=== PATIENT | female | born 1995 | race Caucasian/White ===

== ENCOUNTER 2024-07-07 20:56 | Emergency (ER) | payer OTHER ==
[~2024-07-07] VITALS: Ht 154.9 cm; Wt 103.0 kg
[2024-07-07 21:13] VITALS: BP 127/58; PULSE 89; RESP 18; TEMP 98.6; O2SAT 98
[2024-07-07 22:59] LABS: APPEARANCE,URINE CLEAR (CLEAR); BILIRUBIN,URINE NEGATIVE (NEGATIVE); BLOOD, URINE TRACE-I (NEGATIVE); COLOR,URINE YELLOW (YELLOW); LEUKOCYTE ESTERASE ,URINE TRACE (NEGATIVE); NITRITE, URINE NEGATIVE (NEGATIVE); PH,URINE 7.5 (5.0-9.0); PROTEIN,URINE NEGATIVE (NEGATIVE); UGLUCOSE NEGATIVE (NEGATIVE); UROBILINOGEN,URINE 0.2 EU/dL (0.2 - 1)
[2024-07-07 23:18] LABS: BACTERIA,URINE FEW /HPF (None Seen); RBC,URINE 0-5 /HPF (0-5); WBC,URINE 0-5 /HPF (0-5)
[2024-07-08] MEDS ORDERED: NITR100C7 PO (00:06)
== END 2024-07-08 00:27 | disposition home or self-care (01) ==
LOC: MED 20:56
DX: N39.0 Urinary tract infection, site not specified (principal); Z79.899 Other long term (current) drug therapy
CPT/HCPCS: 81001; 81025; 99283